=== PATIENT | male | born 1970 | race Caucasian/White ===

== ENCOUNTER 2022-11-17 18:34 | Emergency (ER) | payer OTHER, SELFPAY ==
--- NOTE | ~2022-11-17 | XR_ITS ---
EXAMINATION: XR KNEE, RIGHT CLINICAL INFORMATION: Pain and swelling COMPARISON: None TECHNIQUE: Three views of the right knee. FINDINGS: Bones and soft tissues are normal. No fracture or joint effusion. Alignment is anatomic. Joint spaces are well maintained. No abnormal soft tissue calcification. XR/XR knee RT 2V IMPRESSION: Normal right knee.
[2022-11-17 18:46] VITALS: BP 157/91; PULSE 70; RESP 18; TEMP 37.1; O2SAT 96; BMI 35.5
--- NOTE | 2022-11-17 19:16 | ED.GENADULT ---
HPI - General Adult General Chief complaint: Extremity Problem Stated complaint: R knee pain Time Seen by Provider: 11/17/22 19:15 Source: patient Mode of arrival: ambulatory Limitations: no limitations History of Present Illness HPI narrative: Patient is a 52 year old assigned male at with no reported medical history presenting to the emergency department today with right knee pain. Patient states that 2 weeks ago he felt a strain in his right knee as he was getting up and now he is feeling clicking and throbbing that is getting progressively worse. Patient denies any dizziness, lightheadedness, abdominal pain, nausea, vomiting, fever, chills, blurry vision, double vision, loss of vision, chest pain, difficulty breathing, shortness of breath, back pain, night sweats, pain with urination, increased urinary frequency, increased urinary urgency, blood in his urine or stool, syncope or a near syncopal episode, recent trauma or falls, bowel incontinence, bladder incontinence, bowel retention, bladder retention, or any other complaints at this time. Onset (ago): week(s) (2) Location: right and lower extremity Radiation: non-radiation Severity: mild Severity scale (1-10): 3 Quality: aching Pain Consistency: constant Relieving factors: none Exacerbating factors: none Associated symptoms: denies other symptoms Treatments prior to arrival: none Related Data Allergies Allergy/AdvReac Type Severity Reaction Status Date / Time No Known Allergies Allergy Unverified 05/27/20 14:49 Review of Systems Constitutional: Constitutional: Reports no additional constitutional complaints, Denies chills, Denies fever(s) and Denies night sweats Eyes: Eyes: Reports no additional eye complaints, Denies blurry vision, Denies change in vision, Denies diplopia, Denies eye discharge, Denies loss of vision and Denies eye pain ENT: Denies dizziness Cardiovascular: Cardiovascular: Reports no additional cardiovascular complaints, Denies chest pain, Denies lightheadedness, Denies Loss of Consciousness and Denies dyspnea Respiratory: Respiratory: Reports no additional respiratory complaints and Denies dyspnea Gastrointestinal: Gastrointestinal: Reports no additional gastrointestinal complaints, Denies abdominal pain, Denies melena, Denies hematochezia, Denies change in bowel habits and Denies change in stool character Genitourinary: Genitourinary: Reports no additional male genitourinary complaints, Denies hematuria, Denies oliguria, Denies difficulty urinating, Denies dysuria, Denies urinary frequency, Denies urinary hesitancy, Denies urinary incontinence and Denies urinary urgency Musculoskeletal: Musculoskeletal: Reports no additional musculoskeletal complaints, Denies numbness and Denies tingling Comments: right knee pain Neurologic: Denies dizziness, Denies loss of vision, Denies numbness and Denies tingling Psychiatric: Psychiatric: Reports no additional psychiatric complaints Endocrine: Endocrine: Reports no additional endocrine complaints Hematologic/Lymphatic: Hematologic/Lymphatic: Reports no additional hematologic/lymphatic complaints Allergic/Immunologic: Allergic/Immunologic: Reports no additional allergic/immunologic complaints [facility] Past Medical History Attestation statement: The following information was validated with the patient. Source: old records reviewed and nursing notes reviewed Social History Social History Advance Directives: No Advance Directives Information Provided: No Physical Exam ED Vital Signs: Vital Signs - 24 hr 11/17/22 18:46 Temperature 98.8 F Pulse Rate 70 Respiratory Rate 18 Blood Pressure 157/91 H Pulse Oximetry 96 Oxygen Delivery Method Room Air BMI result Body Mass Index 35.5 Const General: cooperative, no acute distress, alert and awake Nutritional Appearance: well nourished Orientation/consciousness: patient oriented x3 Limitations: no limitations HENMT Head: Yes normal to inspection and Yes atraumatic Ears: hearing grossly normal bilaterally and external ears normal General nose exam: Normal external nose present, no nasal discharge noted and no epistaxis Face and sinus: Yes normal facial exam, No abrasion and No laceration Mouth: Normal oral and palatal mucosa present, no drooling and no muffled voice Eyes General: appearance normal, both eyes and all related structures Periorbital: periorbital findings normal Eyelids: Yes eyelids normal Conjunctivae: conjunctivae normal Pupils: Equal, round and reactive pupils present EOM: EOMs intact bilaterally Neck Neck: Yes normal visual inspection, Yes full ROM and Yes no lymphadenopathy Chest Chest palpation & inspection: normal inspection of the chest Resp Effort & Inspection: normal respiratory effort and able to speak in complete sentences Auscultation: clear to auscultation bilaterally Cardio Rate: regular rate Rhythm: regular rhythm GI Inspection: Yes normal to inspection Palpation (GI): Soft to palpation, not firm, nontender, no guarding and not rigid Neuro General: patient oriented x3 and moves all extremities Cranial nerves: Yes Equal, round and reactive pupils present Cognition (Neuro): normal cognition Motor exam (neuro): 5/5 motor strength present throughout Sensory Exam: Normal double simultaneous stimulation for sensation Coordination: [id number] test normal Extrem Other: positive parvin test General: Yes normal to inspection, Yes full ROM and Yes capillary refill normal Psych Appearance: grossly normal Mental Status: mental status grossly normal Affect: normal affect Attitude: cooperative Thought process: Normal thought process present Thought content: Normal thought content present Insight: Good insight present (Psych) Procedures Orthopedic Splinting/Casting Injury #1: Side: right Lower Extremity Injury Location: knee Lower Extremity Immobilizer: knee immobilizer Other Orthopedic Equipment: crutches Medical Decision Making Medical Decision Making MDM Narrative: Patient is a 52 year old assigned male at with no reported medical history presenting to the emergency department today with right knee pain. Patient's physical exam showed a positive parvin tests which is indicative of a meniscus injury. Patient's right knee x-ray showed no acute process. I explained my physical exam findings as well as all test results to the patient. I answered all questions asked by the patient. Patient's right knee was placed in an immobilizer and the patient was given crutches with crutch instructions. Patient's PMS was in tact prior to and after immobilizer was placed. I stressed the importance of the patient taking his medication as prescribed. I stressed the importance of the patient following up with his primary care provider and an orthopedic provider. I stressed the importance of the patient returning to the emergency department immediately if his symptoms were to worsen or if he were to develop any dizziness, shortness of breath, difficulty breathing, chest pain, blurry vision, loss of vision, nausea, vomiting, abdominal pain, fever, chills, back pain, or any other complaints. Patient verbalized agreement and understanding with this treatment plan and discharge. Differential Diagnosis Differential Diagnoses: The differential diagnosis associated with the presentation includes right knee injury, right knee pain, meniscus Independent Interpretation I performed an independent interpretation of an: Plain X-Ray Interpretation: My interpretation is in agreement with the radiologist's impression of this imaging study. EXAMINATION: XR KNEE, RIGHT? CLINICAL INFORMATION: Pain and swelling? COMPARISON: None? TECHNIQUE: Three views of the right knee. FINDINGS: Bones and soft tissues are normal. No fracture or joint effusion. Alignment is anatomic. Joint spaces are well maintained. No abnormal soft tissue calcification.? XR/XR knee RT 2V IMPRESSION: Normal right knee. Dictated By: Romulo De León MD Signed By: Electronically signed by Romulo De León MD 11/17/221945 Discharge Plan Discharge Clinical Impression: Injury of knee Patient Disposition: Home, Self-Care Instructions: Crutch Instructions (ED) Additional Instructions: Follow up with your primary care provider. Return to the emergency department immediately if your symptoms worsen or if you develop any dizziness, shortness of breath, difficulty breathing, chest pain, blurry vision, loss of vision, nausea, vomiting, abdominal pain, fever, chills, back pain, or any other complaints. Referrals: [facility] [place] [facility] [Provider Group] (Call to establish and follow up with an orthopedic provider.) Kanwal Kruse MD [Primary Care Provider] - Stand Alone Forms: Work/School Release Interventions: ED Discharge Assessment Last Done: 11/17/22 20:15 Discharge Date/Time: 11/17/22 20:19 Print Language: [place]
== END 2022-11-17 20:19 | disposition home or self-care (01) ==
PROVIDERS: Emergency Provider Internal Medicine; PCP Internal Medicine
DX: M25.561 Pain in right knee (principal); S89.91XA Unspecified injury of right lower leg, initial encounter; X58.XXXA Exposure to other specified factors, initial encounter; Y93.9 Activity, unspecified; Y92.9 Unspecified place or not applicable; Y99.9 Unspecified external cause status
CPT/HCPCS: 73560; 99282; 99283; 99284

== ENCOUNTER 2025-03-28 06:12 | Emergency (ER) | payer OTHER, SELFPAY ==
--- NOTE | ~2025-03-28 | CT_ITS ---
CLINICAL HISTORY: RUQ abdominal pain back pain CT abdomen and pelvis with contrast Comparison: None provided Findings: A few 2-4 mm nodules are suggested at the left lung base. The liver, gallbladder, spleen, adrenal glands and pancreas are normal. Kidneys demonstrate no suspicious lesion or obstructive uropathy. The bladder is distended without focal abnormality. There is diffuse fecal retention throughout the colon. There is no small bowel obstruction or free air. Normal appendix. Engorgement of the vasa recta. No acute osseous finding. Impression: Findings are suggestive of enteritis. Normal appendix. No free air or abscess. Diffuse fecal retention throughout the colon noted. This document has been electronically signed by: Juan Pablo Tello MD on 03/28/2025 09:42:12
--- NOTE | ~2025-03-28 | XR_ITS ---
CLINICAL HISTORY: chest pain 2 view chest x-ray Comparison: None provided Findings: No consolidation or effusion. Normal size heart. No acute fracture. IMPRESSION: 1. No acute findings. This document has been electronically signed by: Cole Sewell MD on 03/28/2025 08:44:11
--- OUTSIDE RECORDS SUMMARY | 2025-03-28 06:27 | XMS_ITS | Continuity of Care Document ---
Author Name [facility] Organization [facility] Care Team Providers Care Housing Management Representative Name Role Phone [facility] Unavailable Unavailable Problems Combined list of problems from Department of Defense and Veterans Affairs facilities. It does not include entries that were removed or entered in error. Problem Status Onset Date Problem Type Date of Resolution Comments Source Allergic Rhinitis ([facility] [id number]) Active Condition [facility] [place] [facility] Exposure to potentially hazardous substance Active Condition [facility] [place] [facility] HTN - Hypertension ([facility] [id number]) Active Condition [facility] [place] [facility] Hyperlipidemia ([facility] [id number]) Active Condition [facility] [place] [facility] Polyp Colon ([facility] [id number]) Active Condition Oct 01, 2021 Entered By: Maurizio MAHMOOD Comment: One TA on 03-26-2020 colonoscopy . [facility] [place] [facility] Diagnosis: ICD-10-CM K63.5 Polyp of colon Active Diagnosis [facility] [place] [facility] Diagnosis: ICD-10-CM Z46.0 Encounter for fit/adjst of spectacles and contact lenses Active Diagnosis [facility] [place] [facility] Diagnosis: ICD-10-CM H52.03 Hypermetropia, bilateral Active Diagnosis [facility] [place] [facility] Diagnosis: ICD-10-CM Z23 Encounter for immunization Active Diagnosis [facility] Medications Combined list of outpatient medications from Department of Defense and Veterans Affairs facilities.Medications provided include 1) outpatient medications from the last 15 months, and 2) patient-reported medications. Medication Details Route Status Patient Instructions Prescription Expires Prescription Number Last Dispense Date Ordering Provider Order Date Order Qty Source CETIRIZINE HCL 10MG TAB TAKE ONE TABLET BY MOUTH ONCE DAILY NEEDED FOR ALLERGIE S ORAL ACTIVE 01/22/2026 [id number] PAM MAHMOOD 2024 [facility] CETIRIZINE HCL 10MG TAB TAKE ONE TABLET BY MOUTH ONCE DAILY NEEDED FOR ALLERGIE S ORAL DISCONT INUED 11/26/2024 [id number] PAM MAHMOOD 2023 [facility] [place] SIMVASTATIN 80MG TAB TAKE ONE-HALF TABLET BY MOUTH AT BEDTIME FOR CHOLESTE ROL (REPLACE S ATORVAST ATIN) ORAL ACTIVE 01/22/2026 [id number] PAM MAHMOOD 2024 45 [place] [facility] [place] [facility] SIMVASTATIN 80MG TAB TAKE ONE-HALF TABLET BY MOUTH AT BEDTIME FOR CHOLESTE ROL (REPLACE S ATORVAST ATIN) ORAL DISCONT INUED 11/26/2024 [id number] PAM MAHMOOD 2023 45 [facility] [place] Immunizations Combined list of available immunizations from the Department of Defense and [facility] facilities. Immunization Series Date Given Administered By Site Reaction Lot Number CVX Code Drug Deck Builder Status Comments Source HEP A-HEP B 2 2023 URVASHI SHAW LEFT DELTO ID [id number] 104 complet ed [facility] [place] HEP A-HEP B 1 2023 REILLY LEE LEFT DELTO ID [id number] 104 complet ed [facility] [place] INFLUENZA, INJECTABLE, QUADRIVALENT, PRESERVATIVE FREE 2023 REILLY LEE E LEFT DELTO ID [id number] 150 complet ed Booster for Series, [facility] [place] [facility] INFLUENZA, INJECTABLE, QUADRIVALENT, PRESERVATIVE FREE 2021 150 complet ed [place] [facility] [place] [facility] PNEUMOCOCCAL POLYSACCHARID E PPV23 2020 33 complet ed [place] [facility] [place] [facility] ZOSTER RECOMBINANT 2 2020 187 complet ed [facility] [place] [facility] [facility] COVID-19 (MODERNA), MRNA, LNP-S, PF, 100 MCG/0.5 ML DOSE 2 2020 207 complet ed [facility] COVID-19 (MODERNA), MRNA, LNP-S, PF, 100 MCG/0.5 ML DOSE 1 2020 207 complet ed [facility] INFLUENZA, UNSPECIFIED FORMULATION 2019 88 complet ed [facility] [place] [facility] [facility] INFLUENZA, UNSPECIFIED FORMULATION 2019 88 complet ed [facility] INFLUENZA, INJECTABLE, QUADRIVALENT, PRESERVATIVE FREE 2019 150 complet ed Site: Left Deltoid [facility] [place] [facility] [facility] ZOSTER RECOMBINANT 2 2019 187 complet ed [facility] [place] [facility] [facility] INFLUENZA, INJECTABLE, QUADRIVALENT, PRESERVATIVE FREE 2018 150 complet ed 02, Partner: [facility]. Administe red by: SHERI INMAN (PQN=[id number]). Partner 61 Lot#: [id number] Mfr: GlaxoSmit hKline; Dosage: 0.5 [facility] [place] INFLUENZA, SEASONAL, INJECTABLE 2017 141 complet ed Site: Left Deltoid [facility] [place] FLU,3 YRS (HISTORICAL) 2015 88 complet ed outside provider [facility] [place] DTAP 2015 20 complet ed Site: Left Deltoid [facility] [place] [facility] [facility] DTAP, UNSPECIFIED FORMULATION 2015 107 complet ed [facility] [place] FLU,3 YRS (HISTORICAL) 2015 88 complet ed Site: Right Deltoid [facility] [place] [facility] [facility] DTAP, UNSPECIFIED FORMULATION 2015 107 complet ed [facility] [place] Results Combined list of recent chemistry, hematology and other laboratory results from Department of Defense and Veterans Affairs, ranging from 15 months to all on record, depending upon the facility. Order Name Results Value Reference Range Date Interpretation Specimen Comments Source LIPID PANEL FASTING CHOLESTEROL [MASS/VOLUM E] IN SERUM OR PLASMA 194 mg/dL 05/13 Specimen Type: SERUM No comment entered. Ordering Provider: Maurizio MAHMOOD Report Released Date/Time: Nov 19, 2023 03:08 PM Reporting Lab: [facility] [place] [facility] [address] [facility] [address] Performing Lab: [facility]ITALR[facility]ERS HOSPITALTRN [facility]USE[facility] [address] [facility] [address] [facility]USE [facility] LIPID PANEL FASTING TRIGLYCERID E [MASS/VOLUM E] IN SERUM OR PLASMA 68 mg/dL 0 - 150 05/13 Specimen Type: SERUM No comment entered. Ordering Provider: Maurizio MAHMOOD Report Released Date/Time: Nov 19, 2023 03:08 PM Reporting Lab: [facility]ITALRGR[facility] CENTERN [address] [address] Performing Lab: [facility]ITALRGRANDVIEW [facility]ICAL CENTERN [facility]ENTERUSE[address] [address] [facility] LIPID PANEL FASTING CHOLESTEROL IN LDL [MASS/VOLUM E] IN SERUM OR PLASMA BY CALCULATION 122 mg/dL 0 - 129 05/13 Specimen Type: SERUM No comment entered. Ordering Provider: Maurizio MAHMOOD Report Released Date/Time: Nov 19, 2023 03:08 PM Reporting Lab: [facility]ITALRGRANDVIEW [facility] CENTERN [facility]ENTERUSE[address] [address] Performing Lab: [facility]ITALRL TRN [facility]ENTERUSE[address] [address] [facility]ITALRGRANDVIEW MEDICAL CENTERN [facility]ENTERUSE [facility] LIPID PANEL FASTING CHOLESTEROL .TOTAL/CHOL ESTEROL IN HDL [MASS RATIO] IN SERUM OR PLASMA 3.3 05/13 Specimen Type: SERUM No comment entered. Ordering Provider: Maurizio MAHMOOD Report Released Date/Time: Nov 19, 2023 03:08 PM Reporting Lab: [facility]ITALRFLOWERS HOSPITALTRN [facility]ENTERUSE[address] [address] Performing Lab: [facility]ITALRL TRN [facility]ENTERUSE[address] [address] [facility]ITALRL [facility]N [place] [facility] LIPID PANEL FASTING CHOLESTEROL IN HDL [MASS/VOLUM E] IN SERUM OR PLASMA 58 mg/dL 40 - 60 05/13 Specimen Type: SERUM No comment entered. Ordering Provider: Maurizio MAHMOOD Report Released Date/Time: Nov 19, 2023 03:08 PM Reporting Lab: [place] [facility] [facility] [address] [facility] [address] Performing Lab: [place] [facility] [facility] [address] [facility] [address] [facility]ITALRL WSTRN [place] [facility] LIVER FUNCTION PROTEIN [MASS/VOLUM E] IN SERUM OR PLASMA 6.5 g/dL 6.0 - 8.3 05/13 Specimen Type: SERUM No comment entered. Ordering Provider: Maurizio MAHMOOD Report Released Date/Time: Nov 19, 2023 03:08 PM Reporting Lab: [place] [facility] [place] [facility] [address] [facility] [address] Performing Lab: [place] [facility] [facility] [address] [facility] [address] [facility]ITALRL [facility] [place] [facility] LIVER FUNCTION ALBUMIN [MASS/VOLUM E] IN SERUM OR PLASMA 4.1 g/dL 3.5 - 5.0 05/13 Specimen Type: SERUM No comment entered. Ordering Provider: Maurizio MAHMOOD Report Released Date/Time: Nov 19, 2023 03:08 PM Reporting Lab: [place] [facility] [facility] [address] [facility] [address] Performing Lab: [place] [facility] [facility] [address] [facility] [address] [facility]ITALRL [facility]STRN [place] [facility] LIVER FUNCTION ALKALINE PHOSPHATASE [ENZYMATIC ACTIVITY/VO LUME] IN SERUM OR PLASMA 37 U/L 40 - 150 05/13 L Specimen Type: SERUM No comment entered. Ordering Provider: Maurizio MAHMOOD Report Released Date/Time: Nov 19, 2023 03:08 PM Reporting Lab: [place] [facility] [facility] [address] [facility] [address] Performing Lab: [facility] [place] [facility] [address] [facility] [address] [place] [facility] [place] [facility] LIVER FUNCTION ASPARTATE AMINOTRANSF ERASE [ENZYMATIC ACTIVITY/VO LUME] IN SERUM OR PLASMA 20 U/L 5 - 34 05/13 Specimen Type: SERUM No comment entered. Ordering Provider: Maurizio MAHMOOD Report Released Date/Time: Nov 19, 2023 03:08 PM Reporting Lab: [facility] [place] [facility] [address] [facility] [address] Performing Lab: [facility] [place] [facility] [address] [facility] [address] [place] [facility] LIVER FUNCTION ALANINE AMINOTRANSF ERASE [ENZYMATIC ACTIVITY/VO LUME] IN SERUM OR PLASMA 32 U/L 05/13 Specimen Type: SERUM No comment entered. Ordering Provider: Maurizio MAHMOOD Report Released Date/Time: Nov 19, 2023 03:08 PM Reporting Lab: [facility] [place] [facility] [address] [facility] [address] Performing Lab: [facility] [place] [facility] [address] [facility] [address] [place] [facility] LIVER FUNCTION BILIRUBIN.T OTAL [MASS/VOLUM E] IN SERUM OR PLASMA 0.5 mg/dL 0.2 - 1.2 05/13 Specimen Type: SERUM No comment entered. Ordering Provider: Maurizio MAHMOOD Report Released Date/Time: Nov 19, 2023 03:08 PM Reporting Lab: [facility] [place] [facility] [address] [facility] [address] Performing Lab: [facility] [place] [facility] [address] [facility] [address] [place] [facility] [place] [facility] BASIC METABOLIC PANEL (fasting) UREA NITROGEN [MASS/VOLUM E] IN SERUM OR PLASMA 17 mg/dL 7 - 25 05/13 Specimen Type: SERUM No comment entered. Ordering Provider: Maurizio MAHMOOD Report Released Date/Time: Nov 19, 2023 03:08 PM Reporting Lab: [facility] [place] [facility] [address] [facility] [address] Performing Lab: [facility] [place] [facility] [address] [facility] [address] [place] [facility] [place] [facility] BASIC METABOLIC PANEL (fasting) GLUCOSE [MASS/VOLUM E] IN SERUM OR PLASMA 111 mg/dL 65 - 100 05/13 H Specimen Type: SERUM No comment entered. Ordering Provider: Maurizio MAHMOOD Report Released Date/Time: Nov 19, 2023 03:08 PM Reporting Lab: [place] [facility] [place] [facility] [address] [facility] [address] Performing Lab: [place] [facility] [address] [address] [facility]ITALRL [facility]N [place] [facility] BASIC METABOLIC PANEL (fasting) SODIUM [MOLES/VOLU ME] IN SERUM OR PLASMA 139 mmol/L 135 - 145 05/13 Specimen Type: SERUM No comment entered. Ordering Provider: Maurizio MAHMOOD Report Released Date/Time: Nov 19, 2023 03:08 PM Reporting Lab: [facility] [place] [facility] [address] [facility] [address] Performing Lab: [place] [facility] [place] [address] [address] [place] [facility] [place] [facility] BASIC METABOLIC PANEL (fasting) POTASSIUM [MOLES/VOLU ME] IN SERUM OR PLASMA 4.5 mmol/L 3.5 - 5.0 05/13 Specimen Type: SERUM No comment entered. Ordering Provider: Maurizio MAHMOOD Report Released Date/Time: Nov 19, 2023 03:08 PM Reporting Lab: [facility] [place] [facility] [address] [facility] [address] Performing Lab: [facility] [place] [facility] [address] [facility] [address] [place] [facility] [place] [facility] BASIC METABOLIC PANEL (fasting) CHLORIDE [MOLES/VOLU ME] IN SERUM OR PLASMA 104 mmol/L 100 - 110 05/13 Specimen Type: SERUM No comment entered. Ordering Provider: Maurizio MAHMOOD Report Released Date/Time: Nov 19, 2023 03:08 PM Reporting Lab: [facility]ITALR WSTRN [facility]ENTERUSE[address] [address] Performing Lab: [facility]OSPITALRL TRN [facility]ENTERUSE[address] [address] [facility]ITALRGRANDVIEW MED[facility] CENTERN [facility] BASIC METABOLIC PANEL (fasting) CARBON DIOXIDE, TOTAL [MOLES/VOLU ME] IN SERUM OR PLASMA 28 meq/L 20 - 30 05/13 Specimen Type: SERUM No comment entered. Ordering Provider: Maurizio MAHMOOD Report Released Date/Time: Nov 19, 2023 03:08 PM Reporting Lab: [facility]ITALRL TRN [address] [address] Performing Lab: [facility]ITALRL TRN [facility]ENTERUSEC[facility] [address] [facility] [address] [facility] BASIC METABOLIC PANEL (fasting) CREATININE [MASS/VOLUM E] IN SERUM OR PLASMA 0.80 mg/dL 0.50 - 1.40 05/13 Specimen Type: SERUM No comment entered. Ordering Provider: Maurizio MAHMOOD Report Released Date/Time: Nov 19, 2023 03:08 PM Reporting Lab: [facility]RL TRN [place] [address] Performing Lab: [facility]ITALRL WSTRN [facility]ENTERUSE[address] [address] [facility]ITALRGRANDVIEW MEDICAL CENTERN [facility] BASIC METABOLIC PANEL (fasting) GLOMERULAR FILTRATION RATE/1.73 SQ M.PREDICTED [VOLUME RATE/AREA] IN SERUM, PLASMA OR BLOOD BY CREATININE- BASED FORMULA (CKD-EPI 2020) >90mL/ min 60 05/13 Specimen Type: SERUM No comment entered. Ordering Provider: Maurizio MAHMOOD Report Released Date/Time: Nov 19, 2023 03:08 PM Reporting Lab: [place] [facility] [place] [facility] [address] [facility] [address] Performing Lab: [place] [facility] [place] [facility] [address] [facility] [address] [place] [facility] [facility] BASIC METABOLIC PANEL (fasting) UREA NITROGEN [MASS/VOLUM E] IN SERUM OR PLASMA 24 mg/dL 7 - 25 11/21 Specimen Type: SERUM No comment entered. Ordering Provider: Maurizio MAHMOOD Report Released Date/Time: Nov 19, 2023 02:37 PM Reporting Lab: [place] [facility] [place] [facility] [address] [facility] [address] Performing Lab: [place] [facility] [place] [facility] [address] [facility] [address] [facility]RL WSTRN [facility] CENTERUSE [facility] BASIC METABOLIC PANEL (fasting) GLUCOSE [MASS/VOLUM E] IN SERUM OR PLASMA 99 mg/dL 65 - 100 11/21 Specimen Type: SERUM No comment entered. Ordering Provider: Maurizio MAHMOOD Report Released Date/Time: Nov 19, 2023 02:37 PM Reporting Lab: [facility] [place] [facility] [address] [facility] [address] Performing Lab: [place] [facility] [place] [facility] [address] [facility] [address] [facility] [place] [facility] BASIC METABOLIC PANEL (fasting) SODIUM [MOLES/VOLU ME] IN SERUM OR PLASMA 139 mmol/L 135 - 145 11/21 Specimen Type: SERUM No comment entered. Ordering Provider: Maurizio MAHMOOD Report Released Date/Time: Nov 19, 2023 02:37 PM Reporting Lab: [place] [facility] [place] [facility] [address] [facility] [address] Performing Lab: [place] [facility] [place] [facility] [address] [facility] [address] [facility] [place] [facility] BASIC METABOLIC PANEL (fasting) POTASSIUM [MOLES/VOLU ME] IN SERUM OR PLASMA 4.2 mmol/L 3.5 - 5.0 11/21 Specimen Type: SERUM No comment entered. Ordering Provider: Maurizio MAHMOOD Report Released Date/Time: Nov 19, 2023 02:37 PM Reporting Lab: [facility] [facility] [address] [facility] [address] Performing Lab: [facility] [facility] [address] [facility] [address] [place] [facility] [facility] BASIC METABOLIC PANEL (fasting) CHLORIDE [MOLES/VOLU ME] IN SERUM OR PLASMA 104 mmol/L 100 - 110 11/21 Specimen Type: SERUM No comment entered. Ordering Provider: Maurizio MAHMOOD Report Released Date/Time: Nov 19, 2023 02:37 PM Reporting Lab: [place] [facility] [facility] [address] [facility] [address] Performing Lab: [place] [facility] [place] [address] [address] [place] [facility] BASIC METABOLIC PANEL (fasting) CARBON DIOXIDE, TOTAL [MOLES/VOLU ME] IN SERUM OR PLASMA 26 meq/L 20 - 30 11/21 Specimen Type: SERUM No comment entered. Ordering Provider: Maurizio MAHMOOD Report Released Date/Time: Nov 19, 2023 02:37 PM Reporting Lab: [facility] [facility] [address] [facility] [address] Performing Lab: [place] [facility] [place] [facility] [address] [facility] [address] [place] [facility] [facility] BASIC METABOLIC PANEL (fasting) CREATININE [MASS/VOLUM E] IN SERUM OR PLASMA 0.83 mg/dL 0.50 - 1.40 11/21 Specimen Type: SERUM No comment entered. Ordering Provider: Maurizio MAHMOOD Report Released Date/Time: Nov 19, 2023 02:37 PM Reporting Lab: [facility] [facility] [address] [facility] [address] Performing Lab: [place] [facility] [facility] [address] [facility] [address] [facility] BASIC METABOLIC PANEL (fasting) GLOMERULAR FILTRATION RATE/1.73 SQ M.PREDICTED [VOLUME RATE/AREA] IN SERUM, PLASMA OR BLOOD BY CREATININE- BASED FORMULA (CKD-EPI 2020) >90mL/ min 60 11/21 Specimen Type: SERUM No comment entered. Ordering Provider: Maurizio MAHMOOD Report Released Date/Time: Nov 19, 2023 02:37 PM Reporting Lab: [facility]N [place] [address] Performing Lab: [facility]ITALRL TRN [facility]ENTERUSE[address] [address] [facility] LIPID PANEL FASTING CHOLESTEROL [MASS/VOLUM E] IN SERUM OR PLASMA 272 mg/dL 11/21 H Specimen Type: SERUM No comment entered. Ordering Provider: Maurizio MAHMOOD Report Released Date/Time: Nov 19, 2023 02:37 PM Reporting Lab: [facility]ITALRL TRN [facility]ENTERUSE[address] [address] Performing Lab: [facility]ITALRL TRN [facility]ENTERUSE[address] [address] [facility] LIPID PANEL FASTING TRIGLYCERID E [MASS/VOLUM E] IN SERUM OR PLASMA 76 mg/dL 0 - 150 11/21 Specimen Type: SERUM No comment entered. Ordering Provider: Maurizio MAHMOOD Report Released Date/Time: Nov 19, 2023 02:37 PM Reporting Lab: [facility]RL [facility] [place] [facility] [address] [facility] [address] Performing Lab: [facility]ITALRL TRN [facility]ENTERUSE[address] [address] [facility]ITALRGRAND[facility] CENTERN [facility] LIPID PANEL FASTING CHOLESTEROL IN LDL [MASS/VOLUM E] IN SERUM OR PLASMA BY CALCULATION 205 mg/dL 0 - 129 11/21 H Specimen Type: SERUM No comment entered. Ordering Provider: Maurizio MAHMOOD Report Released Date/Time: Nov 19, 2023 02:37 PM Reporting Lab: [facility] [place] [facility] [address] [facility] [address] Performing Lab: [facility] [place] [facility] [address] [facility] [address] [place] [facility] [place] [facility] LIPID PANEL FASTING CHOLESTEROL .TOTAL/CHOL ESTEROL IN HDL [MASS RATIO] IN SERUM OR PLASMA 5.2 11/21 Specimen Type: SERUM No comment entered. Ordering Provider: Maurizio MAHMOOD Report Released Date/Time: Nov 19, 2023 02:37 PM Reporting Lab: [facility] [place] [facility] [address] [facility] [address] Performing Lab: [facility] [place] [facility] [address] [facility] [address] [facility] W[facility] [place] [facility] LIPID PANEL FASTING CHOLESTEROL IN HDL [MASS/VOLUM E] IN SERUM OR PLASMA 52 mg/dL 40 - 60 11/21 Specimen Type: SERUM No comment entered. Ordering Provider: Maurizio MAHMOOD Report Released Date/Time: Nov 19, 2023 02:37 PM Reporting Lab: [facility] [place] [facility] [address] [facility] [id number] Performing Lab: [facility] [place] [facility] [address] [facility] [address] [facility] [place] [facility] LIVER FUNCTION PROTEIN [MASS/VOLUM E] IN SERUM OR PLASMA 7.0 g/dL 6.0 - 8.3 11/21 Specimen Type: SERUM No comment entered. Ordering Provider: Maurizio MAHMOOD Report Released Date/Time: Nov 19, 2023 02:37 PM Reporting Lab: [facility] [place] [facility] [address] [facility] [id number] Performing Lab: [facility] [place] [facility] [address] [facility] [id number] [facility] [place] [facility] LIVER FUNCTION ALBUMIN [MASS/VOLUM E] IN SERUM OR PLASMA 4.4 g/dL 3.5 - 5.0 11/21 Specimen Type: SERUM No comment entered. Ordering Provider: Maurizio MAHMOOD Report Released Date/Time: Nov 19, 2023 02:37 PM Reporting Lab: [facility] [place] [facility] [address] [facility] [address] Performing Lab: [facility] [facility] [place] [facility] [address] [facility] [address] [facility] [place] [facility] LIVER FUNCTION ALKALINE PHOSPHATASE [ENZYMATIC ACTIVITY/VO LUME] IN SERUM OR PLASMA 45 U/L 40 - 150 11/21 Specimen Type: SERUM No comment entered. Ordering Provider: Maurizio MAHMOOD Report Released Date/Time: Nov 19, 2023 02:37 PM Reporting Lab: [facility] [place] [facility] [address] [facility] [address] Performing Lab: [facility] [place] [facility] [address] [facility] [address] [facility] [place] [facility] LIVER FUNCTION ASPARTATE AMINOTRANSF ERASE [ENZYMATIC ACTIVITY/VO LUME] IN SERUM OR PLASMA 20 U/L 5 - 34 11/21 Specimen Type: SERUM No comment entered. Ordering Provider: Maurizio MAHMOOD Report Released Date/Time: Nov 19, 2023 02:37 PM Reporting Lab: [facility] [place] [facility] [address] [facility] [address] Performing Lab: [facility] [place] [facility] [address] [facility] [address] [facility] [place] [facility] LIVER FUNCTION ALANINE AMINOTRANSF ERASE [ENZYMATIC ACTIVITY/VO LUME] IN SERUM OR PLASMA 21 U/L 11/21 Specimen Type: SERUM No comment entered. Ordering Provider: Maurizio MAHMOOD Report Released Date/Time: Nov 19, 2023 02:37 PM Reporting Lab: [facility] [place] [facility] [address] [facility] [address] Performing Lab: [facility] [place] [facility] [address] [facility] [address] [facility] [place] [facility] LIVER FUNCTION BILIRUBIN.T OTAL [MASS/VOLUM E] IN SERUM OR PLASMA 0.4 mg/dL 0.2 - 1.2 11/21 Specimen Type: SERUM No comment entered. Ordering Provider: Maurizio MAHMOOD Report Released Date/Time: Nov 19, 2023 02:37 PM Reporting [facility]: [facility] [place] [facility] [address] [facility] [address] Performing Lab: [facility] [address] [address] [facility] [place] [facility] IRON & TIBC PANEL IRON BINDING CAPACITY [MASS/VOLUM E] IN SERUM OR PLASMA 368 ug/dL 204 - 475 11/21 Specimen Type: SERUM No comment entered. Ordering Provider: Maurizio MAHMOOD Report Released Date/Time: Nov 19, 2023 02:37 PM Reporting Lab: [facility] [place] [address] [address] Performing Lab: [facility] [place] [address] [address] [facility] [facility] IRON & TIBC PANEL IRON [MASS/VOLUM E] IN SERUM OR PLASMA 86 ug/dL 40 - 160 11/21 Specimen Type: SERUM No comment entered. Ordering Provider: Maurizio MAHMOOD Report Released Date/Time: Nov 19, 2023 02:37 PM Reporting Lab: [facility] [place] [address] [address] Performing Lab: [place] [facility] [place] [address] [address] [facility] [place] [facility] IRON & TIBC PANEL IRON/IRON BINDING CAPACITY.TO DENNYS [MASS RATIO] IN SERUM OR PLASMA 23.4 20.0 - 50.0 11/21 Specimen Type: SERUM No comment entered. Ordering Provider: Maurizio MAHMOOD Report Released Date/Time: Nov 19, 2023 02:37 PM Reporting Lab: [facility] [place] [address] [address] Performing Lab: [place] [facility] [place] [facility] [address] [facility] [address] [facility] [place] [facility] FERRITIN FERRITIN [MASS/VOLUM E] IN SERUM OR PLASMA 135 ng/mL 20 - 300 11/21 Specimen Type: SERUM No comment entered. Ordering Provider: Maurizio MAHMOOD Report Released Date/Time: Nov 19, 2023 02:37 PM Reporting Lab: [facility] [place] [facility] [address] [facility] [address] Performing Lab: [facility] [place] [facility] [address] [facility] [address] [facility] [place] [facility] CBC AND DIFF (AUTO) LEUKOCYTES [#/VOLUME] IN BLOOD BY AUTOMATED COUNT 4.95 10*3/u L 4.50 - 11.00 11/21 Specimen Type: BLOOD No comment entered. Ordering Provider: Maurizio MAHMOOD Report Released Date/Time: Nov 19, 2023 02:37 PM Reporting Lab: [facility] [place] [facility] [address] [facility] [address] Performing Lab: [facility] [place] [facility] [address] [facility] [address] [facility] [place] [facility] CBC AND DIFF (AUTO) ERYTHROCYTE S [#/VOLUME] IN BLOOD BY AUTOMATED COUNT 4.83 10*6/u L 4.23 - 5.66 11/21 Specimen Type: BLOOD No comment entered. Ordering Provider: Maurizio MAHMOOD Report Released Date/Time: Nov 19, 2023 02:37 PM Reporting Lab: [facility] [place] [facility] [address] [facility] [address] Performing Lab: [facility] [place] [facility] [address] [facility] [address] [facility] [place] [facility] CBC AND DIFF (AUTO) HEMOGLOBIN [MASS/VOLUM E] IN BLOOD 14.1 g/dL 12.8 - 17 11/21 Specimen Type: BLOOD No comment entered. Ordering Provider: Maurizio MAHMOOD Report Released Date/Time: Nov 19, 2023 02:37 PM Reporting Lab: [facility] [place] [facility] [address] [facility] [address] Performing Lab: [facility] [place] [facility] [address] [facility] [address] [facility] [place] [facility] CBC AND DIFF (AUTO) HEMATOCRIT [VOLUME FRACTION] OF BLOOD BY AUTOMATED COUNT 43.1 39.2 - 50.4 11/21 Specimen Type: BLOOD No comment entered. Ordering Provider: Maurizio MAHMOOD Report Released Date/Time: Nov 19, 2023 02:37 PM Reporting Lab: [facility] [place] [facility] [address] [facility] [address] Performing Lab: [facility] [place] [facility] [address] [facility] [address] [place] [facility] [place] [facility] CBC AND DIFF (AUTO) MCV [ENTITIC VOLUME] BY AUTOMATED COUNT 89.2 fL 82 - 99 11/21 Specimen Type: BLOOD No comment entered. Ordering Provider: Maurizio MAHMOOD Report Released Date/Time: Nov 19, 2023 02:37 PM Reporting Lab: [facility] [place] [facility] [address] [facility] [address] Performing Lab: [facility] [place] [facility] [address] [facility] [address] [facility] [place] [facility] CBC AND DIFF (AUTO) MCHC [MASS/VOLUM E] BY AUTOMATED COUNT 32.7 g/dL 30.8 - 35.1 11/21 Specimen Type: BLOOD No comment entered. Ordering Provider: Maurizio MAHMOOD Report Released Date/Time: Nov 19, 2023 02:37 PM Reporting Lab: [facility] [place] [facility] [address] [facility] [address] Performing Lab: [facility] [place] [facility] [address] [facility] [address] [facility] [place] [facility] CBC AND DIFF (AUTO) PLATELETS [#/VOLUME] IN BLOOD BY AUTOMATED COUNT 292 10*3/u L 140 - 360 11/21 Specimen Type: BLOOD No comment entered. Ordering Provider: Maurizio MAHMOOD Report Released Date/Time: Nov 19, 2023 02:37 PM Reporting Lab: [facility] [place] [facility] [address] [facility] [address] Performing Lab: [facility] [place] [facility] [address] [facility] [address] [facility] [place] [facility] CBC AND DIFF (AUTO) ERYTHROCYTE DISTRIBUTIO N WIDTH [RATIO] BY AUTOMATED COUNT 13.4 12.0 - 16.0 11/21 Specimen Type: BLOOD No comment entered. Ordering Provider: Maurizio MAHMOOD Report Released Date/Time: Nov 19, 2023 02:37 PM Reporting Lab: [facility] [place] [address] [address] Performing Lab: [place] [facility] [place] [address] [address] [place] [facility] [place] [facility] CBC AND DIFF (AUTO) MONOCYTES [#/VOLUME] IN BLOOD BY AUTOMATED COUNT 0.44 10*3/u L 0.30 - 1.10 11/21 Specimen Type: BLOOD No comment entered. Ordering Provider: Maurizio MAHMOOD Report Released Date/Time: Nov 19, 2023 02:37 PM Reporting Lab: [facility] [place] [address] [address] Performing Lab: [facility] [place] [address] [address] [facility] [place] [facility] CBC AND DIFF (AUTO) MCH [ENTITIC MASS] BY AUTOMATED COUNT 29.2 pg 26.2 - 32.6 11/21 Specimen Type: BLOOD No comment entered. Ordering Provider: Maurizio MAHMOOD Report Released Date/Time: Nov 19, 2023 02:37 PM Reporting Lab: [facility] [place] [address] [address] Performing Lab: [facility] [place] [address] [address] [facility] [place] [facility] CBC AND DIFF (AUTO) NEUTROPHILS /100 LEUKOCYTES IN BLOOD BY AUTOMATED COUNT 60.0 43.7 - 75.8 11/21 Specimen Type: BLOOD No comment entered. Ordering Provider: Maurizio MAHMOOD Report Released Date/Time: Nov 19, 2023 02:37 PM Reporting Lab: [facility] [place] [facility] [address] [facility] [address] Performing Lab: [facility] [place] [facility] [address] [facility] [address] [facility] [place] [facility] CBC AND DIFF (AUTO) LYMPHOCYTES /100 LEUKOCYTES IN BLOOD BY AUTOMATED COUNT 28.7 14.0 - 42.3 11/21 Specimen Type: BLOOD No comment entered. Ordering Provider: Maurizio MAHMOOD Report Released Date/Time: Nov 19, 2023 02:37 PM Reporting Lab: [facility] [place] [facility] [address] [place] [address] Performing Lab: [facility] [place] [facility] [address] [place] [address] [facility] [place] [facility] CBC AND DIFF (AUTO) MONOCYTES/1 00 LEUKOCYTES IN BLOOD BY AUTOMATED COUNT 8.9 5.1 - 13.7 11/21 Specimen Type: BLOOD No comment entered. Ordering Provider: Maurizio MAHMOOD Report Released Date/Time: Nov 19, 2023 02:37 PM Reporting Lab: [facility] [place] [facility] [address] [facility] [address] Performing Lab: [facility] [place] [facility] [address] [place] [address] [facility] [place] [facility] CBC AND DIFF (AUTO) EOSINOPHILS /100 LEUKOCYTES IN BLOOD BY AUTOMATED COUNT 1.4 0.4 - 6.8 11/21 Specimen Type: BLOOD No comment entered. Ordering Provider: Maurizio MAHMOOD Report Released Date/Time: Nov 19, 2023 02:37 PM Reporting Lab: [facility] [place] [facility] [address] [facility] [address] Performing Lab: [facility] [place] [facility] [address] [facility] [address] [facility] [place] [facility] CBC AND DIFF (AUTO) BASOPHILS/1 00 LEUKOCYTES IN BLOOD BY AUTOMATED COUNT 0.8 0.1 - 2.0 11/21 Specimen Type: BLOOD No comment entered. Ordering Provider: Maurizio MAHMOOD Report Released Date/Time: Nov 19, 2023 02:37 PM Reporting Lab: [facility] [place] [facility] [address] [facility] [address] Performing Lab: [facility] [place] [address] [address] [facility] [place] [facility] CBC AND DIFF (AUTO) NEUTROPHILS [#/VOLUME] IN BLOOD BY AUTOMATED COUNT 2.97 10*3/u L 2.20 - 7.60 11/21 Specimen Type: BLOOD No comment entered. Ordering Provider: Maurizio MAHMOOD Report Released Date/Time: Nov 19, 2023 02:37 PM Reporting Lab: [facility] [place] [address] [address] Performing Lab: [facility] [place] [address] [address] [place] [facility] [facility] CBC AND DIFF (AUTO) LYMPHOCYTES [#/VOLUME] IN BLOOD BY AUTOMATED COUNT 1.42 10*3/u L 1.00 - 3.20 11/21 Specimen Type: BLOOD No comment entered. Ordering Provider: Maurizio MAHMOOD Report Released Date/Time: Nov 19, 2023 02:37 PM Reporting Lab: [facility] [place] [facility] [address] [facility] [address] Performing Lab: [facility] [place] [address] [address] [facility] [place] [facility] CBC AND DIFF (AUTO) EOSINOPHILS [#/VOLUME] IN BLOOD BY AUTOMATED COUNT 0.07 10*3/u L 0.03 - 0.44 11/21 Specimen Type: BLOOD No comment entered. Ordering Provider: Maurizio MAHMOOD Report Released Date/Time: Nov 19, 2023 02:37 PM Reporting Lab: [facility] [place] [facility] [address] [facility] [address] Performing Lab: [facility] [place] [address] [address] [facility] [place] [facility] CBC AND DIFF (AUTO) BASOPHILS [#/VOLUME] IN BLOOD BY AUTOMATED COUNT 0.04 10*3/u L 0.01 - 0.13 11/21 Specimen Type: BLOOD No comment entered. Ordering Provider: Maurizio MAHMOOD Report Released Date/Time: Nov 19, 2023 02:37 PM Reporting Lab: [facility] [place] [address] [address] Performing Lab: [facility] [place] [address] [address] [facility] [place] [facility] CBC AND DIFF (AUTO) IMMATURE GRANULOCYTE S/100 LEUKOCYTES IN BLOOD BY AUTOMATED COUNT 0.2 0.0 - 0.7 11/21 Specimen Type: BLOOD No comment entered. Ordering Provider: Maurizio MAHMOOD Report Released Date/Time: Nov 19, 2023 02:37 PM Reporting Lab: [facility] [place] [address] [address] Performing Lab: [facility] [place] [address] [address] [facility] [place] [facility] CBC AND DIFF (AUTO) IMMATURE GRANULOCYTE S [#/VOLUME] IN BLOOD 0.01 10*3/u L 0.00 - 0.06 11/21 Specimen Type: BLOOD No comment entered. Ordering Provider: Maurizio MAHMOOD Report Released Date/Time: Nov 19, 2023 02:37 PM Reporting Lab: [facility] [place] [address] [address] Performing Lab: [facility] [place] [address] [place] [address] [facility] [place] [facility] Vital Signs Combined list of inpatient and outpatient Vital Signs from Department of Defense and Veterans Affairs, ranging from 12 months to all on record, depending upon the facility. Vital Sign Value Date Comments Source SYSTOLIC BLOOD PRESSURE 120 05/13/20 24 08:25:35 [facility] [place] [facility] DIASTOLIC BLOOD PRESSURE 72 024 08:25:35 [facility] [place] [facility] PULSE OXIMETRY 100 05/13/2024 08:25:35 [facility] [facility] WEIGHT 173 05/13/2024 08:25:35 [facility] [place] [facility] BMI 26 kg/m2 05/13/2024 08:25:35 [facility] [place] [facility] PAIN 0 05/13/2024 08:25:35 [facility] [place] [facility] TEMPERATURE 98.3 05/13/2024 08:25:35 [facility] [place] [facility] PULSE 60 05/13/2024 08:25:35 [facility] [place] [facility] RESPIRATION 16 05/13/2024 08:25:35 [facility] [place] [facility] Encounters Combined list of: 1) Encounters from Department of Veterans Affairs facilities going backup to the last 18 months, not all VA inpatient encounters are included; 2) Encounters from the Department of Defense facilities going backup to 280 months. Location Location Details Encounter Type Encounter Number Reason For Visit Attending Provider ADM Date DC Date Status Disposition Source [facility] [place] [facility] OFFICE O/P EST LOW 20 MIN [id number] Diagnos is: ICD-10- CM K63.5 Polyp of colon PAM MAHMOOD 11/18 [facility] [place] [facility] [place] [facility] Outpatient Encounter [id number] Kate SHAW 11/25 [facility] [place] [facility] [place] OFF/OP EST MAY X REQ PHY/QHP [id number] Diagnos is: ICD-10- CM Z23 Encount er for immuniz Kate EstevezOsvaldo Trevor 12/16 [facility] [place] Out[facility] Encounter [id number] 01/01 [facility] [place] [facility] [place] 1/ [id number] Diagnos is: ICD-10- CM H52.03 Hyperme tropia, percy al SANAMWY EULALIO 01/21 [facility] [place] FIT SPECTACLES MULTIFOCAL [id number] Diagnos is: ICD-10- CM Z46.0 Encount er for fit/adj st of spectac les and contact lenses SANAMWY EULALIO 01/24 [facility] [place] En[facility] [id number] 02/21 [facility] [place] [place] OFFICE O/P EST LOW 20 MIN [id number] Diagnos is: ICD-10- CM K63.5 Polyp of colon PAM MAHMOOD 05/13 [facility] [place] En[facility] [id number] 01/12 [facility] [place] [facility] Encounter [id number] 01/21 [facility] [place] [facility] [place] Encounter [id number] 01/21 [place] [facility] [place] [facility] [place] [facility] Outpatient Encounter [id number] 01/21 [place] [facility] [place] [facility] [place] [facility] Outpatient Encounter [id number] 01/30 [place] [facility] Social History Combined list of available smoking, tobacco, and other social history from Department of Defense and Veterans Affairs facilities. Social History Type Response Date Comment Source Tobacco smoking status IDIS [place]-TOBACCO NEVER USED OTHER TYPE 01/30/2025 [place] [facility] [place] [facility] 01/30[place] [facility] [facility] 01/02/2024 [place] [facility] [place] [facility] History of tobacco use [place]-TOBACCO NEVER USED 11/21/2021 [place] [facility] [place] [facility] History of tobacco use [place]-TOBACCO NEVER USED 11/05/2020 [place] [facility] [facility] History of tobacco use [place]-TOBACCO NEVER USED 04/02/2019 [place] [facility] [place] [facility] History of tobacco use CURRENT SMOKELESS TOBACCO USER 04/09/2018 5 cans / week [place] [facility] [place] [facility] History of tobacco use LIFETIME NON-TOBACCO USER 04/10/2017 [place] [facility] [place] [facility] History of tobacco use CURRENT SMOKER 12/07/2015 chew [place] [facility] History of tobacco use CURRENT SMOKER 11/18/2014 chewing tobacco [facility] [place] [facility] This section is an empty social history section. [facility] Plan of Care List of future care activities from Department of Veterans Affairs facilities. Additional future care activities may be listed in the Assessment and Plan section. Date/Time Care Activity Care Activity Detail Facili ty 05/26/2025 AMBULATORY - MEDICINE AM[place]ULATORY [place] [facility] [place] [facility]
[2025-03-28 06:28] VITALS: BP 131/70; PULSE 66; RESP 16; TEMP 36.8; O2SAT 100; BMI 27.2
--- NOTE | 2025-03-28 06:33 | ECG_ITS ---
Test Reason : CHEST PAIN Blood Pressure : */* mmHG Vent. Rate : 63 BPM Atrial Rate : 63 BPM P-R Int : 178 ms QRS Dur : 100 ms QT Int : 394 ms P-R-T Axes : 50 52 26 degrees QTcB Int : 403 ms Normal sinus rhythm Normal ECG No previous ECGs available Referred By: Generic ED Physician Electronically Signed By: AMANDA YU
[2025-03-28 06:55] LABS: MANUAL DIFF FLAG NO
[2025-03-28 06:59] LABS: Hematocrit 37.6 % (42.0-52.0); Hemoglobin 12.9 g/dl (14.0-18.0); Imm Gran Abs Auto 0.02 X10*3/uL (0.00-0.03); Imm Gran Pct Auto 0.2 % (0.0-0.4); Lymphocytes Absolute Auto 1.2 X10*3/uL (1.2-4.9); Mean Corpuscular HGB Conc 34.3 g/dl (31.0-36.0); Mean Corpuscular Hemoglobin 29.9 pg (27.0-33.0); Mean Corpuscular Volume 87.2 fL (80.0-98.0); NRBC Abs Auto 0.000 X10*3/uL (0.0-0.012); NRBC Pct Auto 0.0 /100WBC (0.0-0.2); Platelet Count 399 X10*3/uL (160-400); Red Blood Count 4.31 X10*6/uL (4.60-5.80); White Blood Count 8.8 X10*3/uL (4.8-10.8)
[2025-03-28 07:12] LABS: Alanine Aminotransferase 33 U/L (0-40); Albumin Level 4.2 g/dL (3.5-5.0); Alkaline Phosphatase 43 U/L (39-117); Anion Gap 13 (12-20); Aspartate Amino Transferase 24 U/L (5-37); Blood Urea Nitrogen 15 mg/dL (9-16); Calcium 8.5 mg/dL (8.4-10.2); Carbon Dioxide 24 mmol/L (22-29); Chloride 104 mmol/L (96-108); Creatinine Clr Calc Pharmacy 103.1; Estimated Glomerular Filt Rate > 60; Lipase 21 U/L (8-78); Potassium 4.5 mmol/L (3.3-5.1); Sodium 136 mmol/L (135-145); Total Protein 6.8 g/dL (6.5-8.0)
[2025-03-28 07:22] LABS: Troponin-I High Sensitivity < 2.7 ng/L (<3.5-35.0)
--- NOTE | 2025-03-28 07:57 | PC.NURSE ---
Pt resting quietly in room; SR per monitor; pt reports 02/17 R sided CP radiating into R scapula; denies N/V/SOB/dizziness at this time; will cont to monitor/tx per orders
--- NOTE | 2025-03-28 08:10 | ED_ITS ---
HPI - Chest Pain General Chief Complaint: Chest Pain Stated Complaint: back pain Time Seen by Provider: 03/28/25 08:08 Source: patient Mode of arrival: ambulatory Limitations: no limitations History of Present Illness ED Provider: Prema Tomlinson PA-C HPI narrative: Patient is a 54 year old assigned male at with a history of recent tonsilitis finished antibiotic and shingles presenting to the emergency department today with right sided chest, upper abdominal quadrant, and back pain. Patient states that late last night he awoke with right back pain that radiates into his right chest and right upper abdominal quadrant. Patient states that it feels like a burning pain. Patient denies any dizziness, lightheadedness, nausea, vomiting, fever, chills, blurry vision, double vision, loss of vision, difficulty breathing, shortness of breath, night sweats, pain with urination, increased urinary frequency, increased urinary urgency, blood in his urine or stool, syncope or a near syncopal episode, recent trauma or falls, bowel incontinence, bladder incontinence, or any other complaints at this time. Related Data Allergies Allergy/AdvReac Type Severity Reaction Status Date / Time No Known Allergies Allergy Verified 03/28/25 06:31 Review of Systems 2 Constitutional: Constitutional: Reports no additional constitutional complaints, Denies chills, Denies fever(s) and Denies night sweats Eyes: Eyes: Reports no additional eye complaints, Denies blurry vision, Denies change in vision, Denies diplopia, Denies eye discharge, Denies loss of vision and Denies eye pain ENT: Denies dizziness Cardiovascular: Cardiovascular: Reports no additional cardiovascular complaints, Reports chest pain, Denies lightheadedness, Denies Loss of Consciousness and Denies dyspnea Respiratory: Respiratory: Reports no additional respiratory complaints and Denies dyspnea Gastrointestinal: Gastrointestinal: Reports no additional gastrointestinal complaints, Reports abdominal pain, Denies melena, Denies hematochezia, Denies change in bowel habits and Denies change in stool character Genitourinary: Genitourinary: Reports no additional male genitourinary complaints, Denies hematuria, Denies oliguria, Denies difficulty urinating, Denies dysuria, Denies urinary frequency, Denies urinary hesitancy, Denies urinary incontinence and Denies urinary urgency Musculoskeletal: Musculoskeletal: Reports no additional musculoskeletal complaints, Denies numbness and Denies tingling Comments: right sided upper back pain Neurologic: Denies dizziness, Denies loss of vision, Denies numbness and Denies tingling Psychiatric: Psychiatric: Reports no additional psychiatric complaints Endocrine: Endocrine: Reports no additional endocrine complaints Hematologic/Lymphatic: Hematologic/Lymphatic: Reports no additional hematologic/lymphatic complaints Allergic/Immunologic: Allergic/Immunologic: Reports no additional allergic/immunologic complaints PMFSH Past Medical History Attestation statement: The following information was validated with the patient. Source: old records reviewed and nursing notes reviewed Social History Social History Alcohol intake: current Smoked in Last 30 Days: Yes Substance Use Type: Marijuana Substance Use Frequency: Occasionally Advance Directives: No Advance Directives Information Provided: No Physical Exam 2 Vital Signs: Vital Signs: Last Vital Signs Temp 98.6 F 03/28/25 08:37 Pulse 61 03/28/25 08:37 Resp 19 03/28/25 08:37 BP 124/78 03/28/25 08:37 Pulse Ox 100 03/28/25 08:37 O2 Del Method Room Air 03/28/25 08:37 BMI result Body Mass Index 27.2 Const: General: cooperative, no acute distress, alert and awake Nutritional Appearance: well nourished Orientation/consciousness: patient oriented x3 HEENT: Head: Yes normal to inspection and Yes atraumatic Ears: hearing grossly normal bilaterally and external ears normal General nose exam: Normal external nose present, no nasal discharge noted and no epistaxis Face and sinus: Yes normal facial exam, No abrasion and No laceration Mouth: Normal oral and palatal mucosa present, no drooling and no muffled voice Eyes: General: appearance normal, both eyes and all related structures P eriorbital: periorbital findings normal Eyelids: Yes eyelids normal C onjunctivae: conjunctivae normal Pupils: Equal, round and reactive pupils present EOM: EOMs intact bilaterally Neck: Neck: Yes normal visual inspection, Yes full ROM and Yes no lymphadenopathy Resp: Effort & Inspection: normal respiratory effort and able to speak in complete sentences GI: Palpation (GI): Soft to palpation, not firm, nontender, no guarding and not rigid Neuro: General: patient oriented x3, moves all extremities and CN's II-XI intact bilaterally Cranial nerves: Yes Equal, round and reactive pupils present Cognition (Neuro): normal cognition Extrem: General: Yes normal to inspection, Yes full ROM and Yes capillary refill normal Psych: Appearance: grossly normal Mental Status: mental status grossly normal Affect: normal affect Attitude: cooperative Thought process: N ormal thought process present Thought content: Normal thought content present Insight: Good insight present (Psych) Medications Administered Discontinued Medications Generic Name Dose Route Start Last Admin Trade Name Cari PRN Reason Stop Dose Admin Iohexol 100 ml 03/28/25 09:23 03/28/25 09:23 Iohexol 350 Mg/Ml 100 Ml Infus..Btl IV 03/28/25 09:24 85 ml ONCE ONE Administration Pantoprazole Sodium 40 mg 03/28/25 08:11 03/28/25 09:00 Pantoprazole Sodium 40 Mg/10 Ml Vial IVPUSH 03/28/25 08:12 40 mg ONCE ONE Administration Medical Decision Making Medical Decision Making [facility] Narrative: Patient is a 54 year old assigned male at with a history of recent tonsilitis finished antibiotic and shingles presenting to the emergency department today with right sided chest, upper abdominal quadrant, and back pain. Patient's physical exam was unremarkable. Patient's blood work was unremarkable. Patient's EKG was unremarkable. Patient's chest x-ray showed no acute process. Patient's CT abdomen/pelvis showed evidence of enteritis with an incidental finding of left lower lobe pulmonary nodules. I explained my physical exam findings as well as all test results to the patient. I answered all questions asked by the patient. I stressed the importance of the patient taking his medication as directed (either prescribed or as the over the counter packaging recommends). I stressed the importance of the patient following up with his primary care provider. I stressed the importance of the patient returning to the emergency department immediately if his symptoms were to worsen or if he were to develop any dizziness, shortness of breath, difficulty breathing, chest pain, blurry vision, loss of vision, nausea, vomiting, abdominal pain, fever, chills, back pain, or any other complaints. Patient verbalized agreement and understanding with this treatment plan and discharge. Differential Diagnosis Differential Diagnoses: The differential diagnosis associated with the presentation includes Enteritis Cholecystitis Shingles recurrence Shoulder pain Musculoskeletal pain Admission/Observation Consideration of admission/observation: Escalation of care including admission/observation considered Patient would have been admitted to the hospital had his work up had any findings where hospital admission was appropriate and his clinical presentation warranted hospital admission. Lab Data [facility] Lab Attestation statement: I reviewed the patient's lab results. My interpretation of these results are in the [facility] Rationale portion of this note. 03/28/25 06:47 03/28/25 06:47 Labs: Lab Results 03/28/25 03/28/25 Range/Units 06:47 08:20 WBC 8.8 (4.8-10.8) X10*3/uL RBC 4.31 L (4.60-5.80) X10*6/uL Hgb 12.9 L (14.0-18.0) g/dl Hct 37.6 L (42.0-52.0) % MCV 87.2 (80.0-98.0) fL MCH 29.9 (27.0-33.0) pg MCHC 34.3 (31.0-36.0) g/dl RDW 12.7 (11.0-16.0) % Plt Count 399 (160-400) X10*3/uL MPV 9.2 L (9.4-12.4) fL Immature Gran % (Auto) 0.2 (0.0-0.4) % Neut % (Auto) 80.2 H (45-73) % Lymph % (Auto) 13.3 L (20-40) % Gonzales % (Auto) 5.1 (2-11) % Eos % (Auto) 0.7 (0-4) % Baso % (Auto) 0.5 (0-2) % Lymph # (Auto) 1.2 (1.2-4.9) X10*3/uL Gonzales # (Auto) 0.5 (0.1-1.2) X10*3/uL Eos # (Auto) 0.1 (0.0-0.4) X10*3/uL Baso # (Auto) 0.0 (0.0-0.2) X10*3/uL Abs Immat Gran (auto) 0.02 (0.00-0.03) X10*3/uL Absolute Neuts (auto) 7.0 (2.0-8.3) x10*3/uL Absolute Nucleated RBC 0.000 (0.0-0.012) X10*3/uL Nucleated RBC % (auto) 0.0 (0.0-0.2) /100WBC Sodium 136 (135-145) mmol/L Potassium 4.5 (3.3-5.1) mmol/L Chloride 104 (96-108) mmol/L Carbon Dioxide 24 (22-29) mmol/L Anion Gap 13 (12-20) BUN 15 (9-16) mg/dL Creatinine 0.73 (0.5-1.4) mg/dL Estim Creat Clear Calc 103.1 Estimated GFR > 60 Random Glucose 146 H (60-115) mg/dL Calcium 8.5 (8.4-10.2) mg/dL Total Bilirubin 0.3 (0.0-1.0) mg/dL AST 24 (5-37) U/L ALT 33 (0-40) U/L Alkaline Phosphatase 43 (39-117) U/L Troponin I High Sens < 2.7 < 2.7 (<3.5-35.0) ng/L Total Protein 6.8 (6.5-8.0) g/dL Albumin 4.2 (3.5-5.0) g/dL Lipase 21 (8-78) U/L Independent Interpretation I performed an independent interpretation of an: EKG, Plain X-Ray and CT Scan Interpretation: My interpretation is in agreement with the radiologist's impression of these imaging studies. L Report Number: [id number]: Total DLP = 385.00 mGy-cm CLINICAL HISTORY: RUQ abdominal pain back pain CT abdomen and pelvis with contrast Comparison: None provided Findings: A few 2-4 mm nodules are suggested at the left lung base. The liver, gallbladder, spleen, adrenal glands and pancreas are normal. Kidneys demonstrate no suspicious lesion or obstructive uropathy. The bladder is distended without focal abnormality. There is diffuse fecal retention throughout the colon. There is no small bowel obstruction or free air. Normal appendix. Engorgement of the vasa recta. No acute osseous finding. Impression: Findings are suggestive of enteritis. Normal appendix. No free air or abscess. Diffuse fecal retention throughout the colon noted. This document has been electronically signed by: Juan Pablo Tello MD on 03/28/2025 09:42:12 Dictated By: Juan Pablo Tello MD Signed By: Electronically signed by Juan Pablo Tello MD 03/28/25 0943 CLINICAL HISTORY: chest pain 2 view chest x-ray Comparison: None provided Findings: No consolidation or effusion. Normal size heart. No acute fracture. IMPRESSION: 1. No acute findings. This document has been electronically signed by: Cole Sewell MD on 03/28/2025 08:44:11 Dictated By: Cole Sewell MD Signed By: Electronically signed by Cole Sewell MD 03/28/25 0845 Vent. Rate: 63 BPM Atrial Rate: 63 BPM P-R Int: 178 ms QRS Dur: 100 ms QT Int: 394 ms P-R-T Axes: 50 52 26 degrees QTcB Int: 403 ms Normal sinus rhythm Normal ECG No previous ECGs available DD/ 0636 Radiology Impression Discussion of test interpretation with radiology: I have reviewed the radiologist's reading. Discharge Plan Discharge Clinical Impression: Acute epigastric pain, Enteritis, Incidental pulmonary nodule Acute shoulder pain Qualifiers: Laterality: right Qualified Code(s): M25.511 - Pain in right shoulder Patient Disposition: Home, Self-Care Instructions: Pulmonary Nodules (ED), Epigastric Pain (ED), Shoulder Pain (ED), Enteritis (ED) Additional Instructions: Your work up today was reassuring that you are not having any emergent lung or cardiac pathology. You were found to have enteritis (intestinal inflammation) Your CT scan of the abdomen/pelvis showed an incidental finding of: A few 2-4 mm nodules at the left lung base It is crucial you follow up with your primary care provider about the incidental findings. Follow up with a primary care provider. Return to the emergency department immediately if your symptoms worsen or if you develop any numbness, tingling, dizziness, shortness of breath, difficulty breathing, chest pain, blurry vision, loss of vision, nausea, vomiting, abdominal pain, fever, chills, back pain, or any other complaints. L If you do not have a primary care provider - call any of the below numbers to establish and follow up with a primary care provider. [facility] ([place]) [phone] [place] [address], [address] [facility] ([address]) [phone] [place] [address], [address] [facility], [address] [facility] ([address]) [phone] [place] [address], [address] [facility], [address] [facility] ([place]) [phone] [place] [address] 2 [facility], [address] [facility] [phone] [place] [address], [address] Please see the information below about our Patient Portal. If you are not yet enrolled in the [facility] Patient Portal, you will receive an enrollment email invitation following your visit to any [facility] setting. You may also self-enroll in the Patient Portal by visiting our website: [email or web address] The following information is required to access the Patient Portal: - Your [facility] Medical Record Number - Your personal home email address (must match what is in your electronic medical record, Registration staff can assist with this) - Name - Date of Capabilities of the Patient Portal: - Message some providers - View upcoming appointments - Access your health summary, medical history, and visit history - View current conditions and allergies - View procedure and lab results - View your medications, including guidelines, side effects, and precautions - Complete pre-appointment questionnaires requested by your provider - Ready summary reports of your office visits and procedures To access the Patient Portal Mobile [employer], follow these directions: - Search [email or web address] in the [employer] Store or [employer] Store - Download the [employer] - Search for [facility] - Enter your login/password Print Language: Irish
[2025-03-28 08:37] VITALS: BP 124/78; PULSE 61; RESP 19; TEMP 37; O2SAT 100
[2025-03-28 08:48] LABS: Troponin-I High Sensitivity < 2.7 ng/L (<3.5-35.0)
[2025-03-28] MEDS: iohexoL 350 MG/ML 100 ML INFUS..BTL IV (09:23)
[2025-03-28 10:08] VITALS: BP 124/78; PULSE 61; RESP 19; TEMP 37; O2SAT 100
== END 2025-03-28 10:14 | disposition home or self-care (01) ==
PROVIDERS: Physician Assistant Medical; Emergency Provider Emergency Medicine
DX: K52.9 Noninfective gastroenteritis and colitis, unspecified (principal); M25.511 Pain in right shoulder; R10.13 Epigastric pain; R07.9 Chest pain, unspecified; R10.11 Right upper quadrant pain; R91.1 Solitary pulmonary nodule
CPT/HCPCS: 36415; 71046; 74177; 80053; 83690; 84484; 85025; 93005; 96374; 99284; 99285; J2470; Q9967

== ENCOUNTER → 2025-03-28 06:33 | Outpatient (BNV) | payer OTHER, SELFPAY | PROVIDERS: Emergency Provider Emergency Medicine; Visit Provider Internal Medicine | DX: R07.89 Other chest pain (principal) | CPT/HCPCS: 93010 ==

== ENCOUNTER → 2025-03-28 08:11 | Outpatient (BNV) | payer OTHER, SELFPAY | PROVIDERS: Visit Provider Radiology Diagnostic Radiology | DX: K56.41 Fecal impaction (principal); R07.9 Chest pain, unspecified | CPT/HCPCS: 71046; 74177 ==